=== PATIENT | female | born 1990 | race Caucasian/White ===

== ENCOUNTER 2017-11-01 22:25 | Inpatient (IN) | payer OTHER, MEDICAID ==
[~2017-11-01] VITALS: Ht 167.6 cm; Wt 81.6 kg
[2017-11-01 22:35] VITALS: BP 150/90
--- NOTE | 2017-11-01 22:41 | NUR ---
TO LOBBY AMB, VS, STABLE , A/W FOR BED, ERMD NOTED.
--- NOTE | 2017-11-02 03:50 | NUR ---
23/05 CAME IN W C/O ABSCESS TO SACRAL AREA. ABSCESS NOTED ON SACRAL AREA, ERYTHEMA, EDEMA NOTED, NO DRAINAGE AT THIS TIME. DENIES FEVER/CHILL, N/V. PT REPORTS HISTORY OF ABSCESS. PT WAS SEEN IN URGENT CARE YESTERDAY FOR SAME CC, RX: CLINDAMYCIN. DENIES OTHER PMH, TAKES TRAMADOL FOR PAIN, DENIES RELIEF
[2017-11-02] MEDS ORDERED: metroNIDAZOLE 500 MG/NS PREMIX 100 ML IV ONE (04:35)
[2017-11-02] MEDS ORDERED: KETOROLAC 30 MG/ML VIAL IVP ONE (04:35)
[2017-11-02] MEDS ORDERED: NACL 0.9% 1,000 ML IV SCH (05:04)
[2017-11-02] MEDS ORDERED: ACETAMINOPHEN 325 MG TAB PO PRN (05:05)
[2017-11-02] MEDS ORDERED: ONDANSETRON 4 MG/2 ML VIAL IVP PRN ×2 (05:05→10:10)
[2017-11-02] MEDS ORDERED: KETOROLAC 15 MG/ML VIAL IVP PRN (05:10)
--- NOTE | 2017-11-02 05:45 | NUR ---
Patient will be admitted to care of [facility]. Admited to TELE. Will go to room 104A. Belongings list completed. BEDSIDE Report to DARLEEN DEL VALLE. IV INFUSING, DARLEEN DEL VALLE INFORMED TO CONTINUE UNTIL FINISH
[2017-11-02 05:49] LABS: APPEARANCE,URINE CLOUDY (CLEAR); BILIRUBIN,URINE NEGATIVE (NEGATIVE); BLOOD, URINE 2+ (NEGATIVE); COLOR,URINE YELLOW (YELLOW); LEUKOCYTE ESTERASE ,URINE 1+ (NEGATIVE); NITRITE, URINE NEGATIVE (NEGATIVE); UGLUCOSE NEGATIVE (NEGATIVE)
[2017-11-02 05:53] LABS: BASOPHILS # (AUTO) 0.1 K/uL (0.00-0.22); BASOPHILS % (AUTO) 0.8 % (0.0-2.0); EOSINOPHILS # (AUTO) 0.1 K/uL (0-0.4); EOSINOPHILS % (AUTO) 0.6 % (0.0-4.0); HEMATOCRIT 37.2 % (36-48); HEMOGLOBIN 12.6 g/dL (12.0-16.0); LYMPHOCYTES # (AUTO) 2.1 K/uL (2.5-16.5); LYMPHOCYTES % (AUTO) 13.6 % (20.5-51.1); MEAN CORPUSCULAR HEMOGLOBIN 29 pg (27-31); MEAN CORPUSCULAR HGB CONC 34 g/dL (33-37); MEAN CORPUSCULAR VOLUME 86 fL (80-94); MONOCYTES # (AUTO) 0.9 K/uL (0.8-1.0); NEUTROPHILS # (AUTO) 12.3 K/uL (1.8-7.7); PLATELET COUNT (AUTO) 346 K/uL (140-450); RED BLOOD CELL COUNT(AUTO) 4.35 MIL/uL (4.20-5.40); RED CELL DISTRIBUTION WIDTH 12.1 % (11.6-13.7); WHITE BLOOD COUNT (AUTO) 15.5 K/uL (4.8-10.8)
[2017-11-02 05:55] LABS: ANION GAP 13.1 (8-16); CARBON DIOXIDE 25.4 mmol/L (21-32); CREATININE 0.9 mg/dL (0.6-1.3); POTASSIUM 3.5 mmol/L (3.5-5.1)
[2017-11-02 06:06] LABS: TOTAL BILIRUBIN 0.5 mg/dL (0.0-1.0)
[2017-11-02 06:10] LABS: RBC,URINE 0-5 (RARE) /HPF (0-5); WBC,URINE 20-60 /HPF (0-5)
[2017-11-02 06:15] VITALS: BP 114/68
--- NOTE | 2017-11-02 06:15 | NUR ---
ADMITTED PATIENT TO THE TELE UNIT, PATIENT AWAKE ALERT ORIENTED X4, NO S/S OF DISTRESS NOTED, RESPIRATION EVEN AND UNLABORED, IV PATENT AND INTACT, TELE MONITOR IS PLACED ON PATIENT, PLAN OF CARE DISCUSSED, PATIENT VERBALIZED UNDERSTANDING, CALL LIGHT WITHIN REACH, SAFETY MEASURE ENSURED, WILL CONTINUE TO MONITOR.
[2017-11-02 06:17] LABS: BARBITURATE, URINE NEG. ng/ml (NEG <=200); BENZODIAZEPINE, URINE NEG. ng/mL (NEG <=200); CANNABINOID, URINE NEG. ng/mL (NEG <=50); COCAINE, URINE NEG. ng/mL (NEG <=300); OPIATE, URINE NEG. ng/mL (NEG <=2000); PHENCYCLIDINE SCREEN,URINE NEG. ng/mL (NEG <=25)
--- NOTE | 2017-11-02 06:21 | NUR ---
DR. YANG IS AWARE THE CLEOCIN IS NOT ADMINISTERED, AND THE DAY SHIFT NURSE WILL ADMINISTER THE CLEOCIN, HE STATED," IT IS OKAY."
[2017-11-02 06:24] LABS: PROTHROMBIN TIME 10.6 secs (10.8-13.4)
[2017-11-02] MEDS ORDERED: CLINDAMYCIN 600 MG in DEXTROSE 5% 50 ML IV SCH ×2 (06:30→13:00)
[2017-11-02] MEDS: LEVOFLOXACIN 750 MG/D5W PREMIX 150 ML IV SCH (06:31)
--- NOTE | 2017-11-02 06:35 | NUR ---
PATIENT HAS BEEN SCREENED AND CATEGORIZED LOW NUTRITION RISK. PATIENT WILL BE SEEN WITHIN 7 DAYS OF ADMISSION. 11/08/17 JAMAAL MYERS MS, RDN
[2017-11-02 06:43] LABS: FREE T4 (FREE THYROXINE) 1.43 ng/dL (0.76-1.46); MAGNESIUM 2.3 mg/dL (1.8-2.4); PHOSPHORUS 3.4 mg/dL (2.5-4.9); THYROID STIMULATING HORMONE 1.84 uIU/mL (0.34-3.74)
--- NOTE | 2017-11-02 07:21 | NUR ---
ENDORSED PLAN OF CARE TO DAY SHIFT RN, PATIENT IS IN STABLE CONDITION.
--- NOTE | 2017-11-02 07:24 | NUR ---
RECEIVED PT IN BED. AWAKE, ALERT ORIENTED X4. NO SOB NOTED. DENIES ANY PAIN OR DISCOMFORT AT THIS TIME. ASSISTED DR. YANG WITH PILONDIAL ABSCESS ASSESSMENT. SAFETY PRECAUTION IN PLACE. AMBULATORY. CALL LIGHT WITHIN REACH.
[2017-11-02 08:00] VITALS: BP 105/65
--- NOTE | 2017-11-02 08:26 | NUR ---
DR. RASHID CAME TO SEE PT
--- NOTE | 2017-11-02 08:30 | NUR ---
DR. RASHID EXPLAINED TO PT PROCEDURE FOR I&D PILONIDAL ABSCESS OF LOWER BACK. PT VERBALIZED UNDERSTANDING AND SIGNED INFORMED CONSENT. ALSO EXPLAINED TO PT THE NEED FOR CT SCAN OF ABDOMEN/PELVIS, AND CONSENT OBTAINED AND IN TO CHART.
[2017-11-02] MEDS: DOCUSATE SODIUM 100 MG GELCAP PO SCH ×2 (09:20→21:33)
[2017-11-02] MEDS: CLINDAMYCIN 600 MG in DEXTROSE 5% 50 ML IV SCH ×2 (09:21→17:26)
[2017-11-02] MEDS: LACTOBACILLUS RHAMNOSUS GG 1 EACH CAP PO SCH (09:21)
--- NOTE | 2017-11-02 09:37 | NUR ---
OPERATING ROOM STAFF SURJIT CAME TO [place] PASTE MAKER PT FOR SCHEDULED I&D, PER TRACY. PT AWAKE. NO SOB NOTED. DENIES ANY PAIN OR DISCOMFORT AT THIS TIME. PT REMOVED HER EARRING ANG HANDED IT TO HER MOTHER LISSET. PROVIDED WITH TICKET TO RIDE AND CONSENT. PT TRANSFERRED ON STABLE CONDITION.
[2017-11-02] MEDS ORDERED: HYDROmorphone PFS 2 MG/ML SYR IVP PRN ×2 (09:55→10:10)
[2017-11-02] MEDS ORDERED: LACTATED RINGERS 1,000 ML IV SCH (10:07)
[2017-11-02] MEDS ORDERED: DEXAMETHASONE 4 MG/ML VIAL ONE (10:10)
[2017-11-02] MEDS ORDERED: diphenhydrAMINE 50 MG/ML VIAL IVP PRN (10:10)
[2017-11-02] MEDS ORDERED: MEPERIDINE 25 MG/ML SYR IVP PRN (10:10)
[2017-11-02] MEDS ORDERED: SEVOFLURANE 250 ML BTL INH ONE (10:10)
[2017-11-02] MEDS ORDERED: PROPOFOL 200 MG/20 ML VIAL IV ONE ×2 (10:10)
[2017-11-02] MEDS ORDERED: ONDANSETRON 4 MG/2 ML VIAL ONE (10:10)
[2017-11-02] MEDS ORDERED: MEPERIDINE 50 MG/ML SYR ONE (10:26)
[2017-11-02] MEDS ORDERED: fentaNYL 0.05 MG/ML VIAL ONE (10:26)
[2017-11-02] MEDS ORDERED: MIDAZOLAM 2 MG/2 ML VIAL ONE (10:26)
[2017-11-02] MEDS ORDERED: HYDROGEN PEROXIDE 3% 240 ML BTL TP ONE (10:27)
[2017-11-02 12:00] VITALS: BP 115/67
--- NOTE | 2017-11-02 12:00 | NUR ---
PT CAME BACK FROM OR. AWAKE. ALERT ORIENTED X4. NO SOB NOTED. DENIES ANY PAIN OR DISCOMFORT AT THIS TIME. DRESSING ON LOWER BACK NOTED. NO ACTIVE BLEEDING NOTED ON SITE. OFFERED PT CLEAR LIQUID DIET.
[2017-11-02] MEDS: DEXT 5% / NACL 0.45% 1,000 ML IV SCH ×2 (12:37→19:55)
--- NOTE | 2017-11-02 13:33 | NUR ---
PT TOLERATED HER CLEAR LIQUID DIET. NO SOB NOTED. DENIES ANY PAIN OR DISCOMFORT AT THIS TIME.
[2017-11-02] MEDS: HYDROcodone/APAP 5/325 MG 1 TAB TAB PO PRN (13:45)
[2017-11-02 16:00] VITALS: BP 93/51
--- NOTE | 2017-11-02 18:10 | NUR ---
PT TOLERATED HER REGULAR DIET WELL. NO SOB NOTED. DENIES ANY PAIN OR DISCOMFORT AT THIS TIME.
--- NOTE | 2017-11-02 18:14 | NUR ---
PT KEPT CLEAN DRY, AND COMFORTABLE, NEEDS ATTENDED. NO SOB NOTED. DENIES ANY PAIN OR DISCOMFORT AT THIS TIME. DRESSING ON LOWER BACK WOUND S/P I&D DRY AND INTACT. NO ACTIVE BLEEDING NOTED. FAMILY AT BEDSIDE. VITALS STABLE. WILL ENDORSE TO NEXT SHIFT. PT ON STABLE CONDITION. FOR CONTINUITY OF CARE.
--- NOTE | 2017-11-02 19:10 | NUR ---
RECEIVED REPORT FROM AM NURSE. PT IS AWAKE, RESTING COMFORTABLY IN BED. NO SIGNS OF ACUTE DISTRESS NOTED, RESPIRATIONS EVEN AND UNLABORED. IV ACCES INTACT, PATENT AND ASYMPTOMATIC. PLAN OF CARE DISCUSSED, PT VERBALIZED UNDERSTANDING. BED IN LOW POSITION, BILATERAL HALF SIDE RAIL UP, CALL LIGHT WITHIN REACH, WILL CONTINUE TO MONITOR
[2017-11-02 20:00] VITALS: BP 109/67
--- NOTE | 2017-11-02 23:38 | NUR ---
RECEIVED REPORT FROM AM NURSE. PT IS AWAKE, RESTING COMFORTABLY IN BED. NO SIGNS OF ACUTE DISTRESS NOTED, RESPIRATIONS EVEN AND UNLABORED. IV ACCES INTACT, PATENT AND ASYMPTOMATIC. PLAN OF CARE DISCUSSED, PT VERBALIZED UNDERSTANDING. BED IN LOW POSITION, BILATERAL HALF SIDE RAIL UP, CALL LIGHT WITHIN REACH, WILL CONTINUE TO MONITOR. Addendum: 11/02/17 at 0253 by Susanne Gibson RN DISREGARD ABOVE NOTATION.
[2017-11-03] VITALS: BP 110/65
[2017-11-03] MEDS: CLINDAMYCIN 600 MG in DEXTROSE 5% 50 ML IV SCH ×3 (00:27→16:23)
[2017-11-03] MEDS: LEVOFLOXACIN 750 MG/D5W PREMIX 150 ML IV SCH (06:01)
[2017-11-03] MEDS: DEXT 5% / NACL 0.45% 1,000 ML IV SCH ×2 (06:04→16:33)
--- NOTE | 2017-11-03 07:10 | NUR ---
RECEIVED PATIENT REPORT AT BEDSIDE. PATIENT AWAKE, ALERT AND ORIENTED. NO S/S OF DISTRESS NOTED. PATIENT ON ROOM AIR. NO SOB. NO C/O PAIN AT THIS TIME. WOUND DRESSING NOTED TO THE SACRAL AREA. DRESSING CLEAN, DRY AND INTACT. BED LOWERED WITH CALL LIGHT WITHIN REACH. WILL CONTINUE TO MONITOR
[2017-11-03 07:28] LABS: BASOPHILS # (AUTO) 0.1 K/uL (0.00-0.22); BASOPHILS % (AUTO) 0.7 % (0.0-2.0); EOSINOPHILS # (AUTO) 0.1 K/uL (0-0.4); EOSINOPHILS % (AUTO) 0.6 % (0.0-4.0); LYMPHOCYTES # (AUTO) 2.6 K/uL (2.5-16.5); LYMPHOCYTES % (AUTO) 23.7 % (20.5-51.1); MEAN CORPUSCULAR HEMOGLOBIN 30 pg (27-31); MEAN CORPUSCULAR HGB CONC 35 g/dL (33-37); MEAN CORPUSCULAR VOLUME 86 fL (80-94); MONOCYTES # (AUTO) 0.7 K/uL (0.8-1.0); MONOCYTES % (AUTO) 6.2 % (1.7-9.3); NEUTROPHILS # (AUTO) 7.7 K/uL (1.8-7.7); NEUTROPHILS % (AUTO) 68.8 % (42.2-75.2); PLATELET COUNT (AUTO) 314 K/uL (140-450); RED BLOOD CELL COUNT(AUTO) 3.72 MIL/uL (4.20-5.40); RED CELL DISTRIBUTION WIDTH 12.2 % (11.6-13.7); WHITE BLOOD COUNT (AUTO) 11.2 K/uL (4.8-10.8)
--- NOTE | 2017-11-03 07:29 | NUR ---
ENDORSED PT TO AM NURSE FOR CONTINUITY OF CARE. PT IN STABLE CONDITION.
[2017-11-03 08:00] VITALS: BP 110/69
[2017-11-03] MEDS: LACTOBACILLUS RHAMNOSUS GG 1 EACH CAP PO SCH (08:19)
[2017-11-03] MEDS: HYDROcodone/APAP 5/325 MG 1 TAB TAB PO PRN ×2 (08:19→16:32)
[2017-11-03] MEDS: DOCUSATE SODIUM 100 MG GELCAP PO SCH ×2 (08:19→21:03)
[2017-11-03 08:20] LABS: ANION GAP 10.6 (8-16); CARBON DIOXIDE 26.4 mmol/L (21-32); CREATININE 0.7 mg/dL (0.6-1.3)
[2017-11-03 08:27] LABS: CHOL/HDL RATIO 2.8 (1-4.5); MAGNESIUM 2.4 mg/dL (1.8-2.4); PHOSPHORUS 3.1 mg/dL (2.5-4.9)
[2017-11-03 16:00] VITALS: BP 107/60
--- NOTE | 2017-11-03 16:20 | NUR ---
PATIENT SEEN BY DR ARSHID. WOUND DRESSING CHANGED. WOUND IRRIGATED WITH NS THEN PACKED WITH WET KERLIX THEN COVERED WITH ABD PAD. PATIENT TOLERATED WELL
--- NOTE | 2017-11-03 19:27 | NUR ---
RECEIVED HANDOFF REPORT FROM AM IVON ROJAS. PATIENT A&OX4. PATIENT DENIES PAIN. PATIENT IV PATENT AND INTACT. NO SIGNS OR SYMPTOMS OF ACUTE DISTRESS NOTED. CALL LIGHT WITHIN REACH. WILL CONTINUE TO MONITOR.
--- NOTE | 2017-11-03 21:05 | NUR ---
PM MEDS GIVEN WITH EDUCATION. REINFORCED DRESSING ON BACK DUE TO PEELING OFF TAPE. DRESSING DRY, NO DRAINAGE, PACKING FREE OF SOILING. PATIENT VERBALIZED UNDERSTANDING.NO SIGNS OR SYMPTOMS OF ACUTE DISTRESS NOTED. CALL LIGHT WITHIN REACH. WILL CONTINUE TO MONITOR.
[2017-11-04] VITALS: BP 91/45
[2017-11-04] MEDS: CLINDAMYCIN 600 MG in DEXTROSE 5% 50 ML IV SCH ×2 (01:30→09:19)
[2017-11-04] MEDS: DEXT 5% / NACL 0.45% 1,000 ML IV SCH (02:11)
--- NOTE | 2017-11-04 02:23 | NUR ---
PATIENT RESTING IN BED. PATIENT DENIES PAIN. NO SIGNS OR SYMPTOMS OF ACUTE DISTRESS NOTED. CALL LIGHT WITHIN REACH. WILL CONTINUE TO MONITOR.
[2017-11-04] MEDS: LEVOFLOXACIN 750 MG/D5W PREMIX 150 ML IV SCH (05:15)
[2017-11-04 07:31] LABS: BASOPHILS # (AUTO) 0.2 K/uL (0.00-0.22); BASOPHILS % (AUTO) 2.1 % (0.0-2.0); EOSINOPHILS # (AUTO) 0.1 K/uL (0-0.4); EOSINOPHILS % (AUTO) 1.7 % (0.0-4.0); HEMATOCRIT 32.5 % (36-48); LYMPHOCYTES # (AUTO) 3.3 K/uL (2.5-16.5); LYMPHOCYTES % (AUTO) 40.8 % (20.5-51.1); MEAN CORPUSCULAR HEMOGLOBIN 29 pg (27-31); MEAN CORPUSCULAR HGB CONC 34 g/dL (33-37); MEAN CORPUSCULAR VOLUME 86 fL (80-94); MONOCYTES # (AUTO) 0.6 K/uL (0.8-1.0); NEUTROPHILS # (AUTO) 3.9 K/uL (1.8-7.7); NEUTROPHILS % (AUTO) 48.4 % (42.2-75.2); PLATELET COUNT (AUTO) 313 K/uL (140-450); RED BLOOD CELL COUNT(AUTO) 3.77 MIL/uL (4.20-5.40); RED CELL DISTRIBUTION WIDTH 12.2 % (11.6-13.7); WHITE BLOOD COUNT (AUTO) 8.1 K/uL (4.8-10.8)
--- NOTE | 2017-11-04 07:33 | NUR ---
ENDORSED PLAN OF CARE TO AM RN. PATIENT IN STABLE CONDITION.
[2017-11-04 08:00] VITALS: BP 100/69
--- NOTE | 2017-11-04 08:00 | NUR ---
RECEIVED REPORT FROM STARLA RN FOR CONTINUITY OF CARE. PATIENT AWAKE A/OX4 NO S/S OF RESP DISTRESS NOTED NO COMPLAIN OF PAIN . ABLE TO MAKE NEEDS KNOWN . IV SITE LT AC GAUGE 20 INTACT AND PATENT. IVF INFUSING WELL . DRESSING WILL BE CHANGED ORDERED. PLAN OF CARE DISCUSSED WITH THE PATIENT ,VITALS STABLE WILL CONTINUE TO MONITOR.
--- NOTE | 2017-11-04 09:13 | NUR ---
WOUND EVALUATION NOTE: REASON FOR WOUND EVALUATION: S/P ABSCESS SACRALCOCCYX AREA COMPLETE SKIN ASSESSMENT DONE ON THIS 27 Y/O FEMALE PATIENT FROM HOME TO [facility], WITH INITIAL DIAGNOSIS OF BUTTOCKS ABSCESS. PAST MEDICAL HISTORY INCLUDE PILONIDAL ABSCESS. ALL ABOVE INFORMATION WAS OBTAINED FROM THE ADMISSION H&P AND PT. PT. IS AAX4. LABS ARE WBC 8.1, H/H 11.0/2.5, GLUCOSE 127, ALBUMIN 3.0. CURRENT MEDS INCLUDE HYDROCODONE, CLINDAMYCIN,AND LEVOFLOXACIN. SKIN WARM TO TOUCH WNL, TOENAILS ARE SHORT AND CLEAN, NO EDEMA, BLE WITH HAIR GROWTH AND NORMAL PLAN OF CARE DISCUSSED WITH PRIMARY RN. PT. ABLE TO VERBALIZE UNDERSTANDING. INTEGUMENTARY: SACROCOCCYX - SACRALCOCCYX S/P I&D SURGICAL SITE 4.SX5.5X4 CM, WOUND BED CLEAN WITH BLANCHABLE REDNESS, MODERATE AMOUNT OF SANGUINOUS DRAINAGE, NO ODOR, GUDELIA-WOUND FLAT EDGE, DRY AND CLEAN, PAIN LEVEL 5/10 RECOMMENDATIONS: -HOME HEALTH TO FOLLOW UP FOR WOUND CARE QD -MEDICATED FOR PAIN 30 MINUTES PRIOR TO DRESSING CHANGE -CLEANSE SACRALCOCCYX S/P I&D SURGICAL SITE WITH WOUND CLEANSING SOLUTION. PAT DRY, PACK WOUND WITH IODOFORM GAUZES, COVER WITH DRY DRESSING AND ABDOMEN PAD SECURE WITH TAPE QD AND PRN IF SOILING -TURN AND REPOSITION PATIENT Q2H -KEEP SKIN CLEAN AND DRY AT ALL TIMES. -CONTINUE TO FOLLOW UP WITH SURGEON AFTER DISCHARGE RECOMMENDATIONS DISCUSSED WITH PRIMARY RN AND DR. DUTTA PLEASE CONTACT WOUND CARE NURSE FOR ANY QUESTIONS AND CHANGES IN WOUND CONDITION.
[2017-11-04] MEDS: LACTOBACILLUS RHAMNOSUS GG 1 EACH CAP PO SCH (09:18)
[2017-11-04] MEDS: DOCUSATE SODIUM 100 MG GELCAP PO SCH (09:19)
[2017-11-04] MEDS: HYDROcodone/APAP 5/325 MG 1 TAB TAB PO PRN (09:19)
--- NOTE | 2017-11-04 11:42 | NUR ---
CALLED [facility] AND SPOKE WITH JOB,[phone]. SHE SAID TO FAX REVIEW JUST TO HER. FAXED INITIAL REVIEW TO [facility] [phone]. JOB SAID FOR HOME HEALTH, TRY [facility], OR [facility] [phone].
--- NOTE | 2017-11-04 15:59 | NUR ---
CALLED [facility], THEY ARE UNABLE TO SERVICE THIS PATIENT. CALLED [facility]. DUE TO THE INSURANCE THEY CANNOT SERVICE THIS PATIENT. I CALLED JOB AT [facility] AND INFORMED HER SHE SAID TO TRY [facility], AND [facility]. THE [facility] CANNOT SERVICE THIS PATIENT AND [facility], UNABLE TO REACH. I INFORMED JOB AND SHE SAID SHE WOULD CALL ME BACK.
[2017-11-04 16:00] VITALS: BP 115/69
--- NOTE | 2017-11-04 17:45 | NUR ---
RECEIVED HANDOFF REPORT FROM AM CHARGE NURSE. PATIENT A&OX4. PATIENT DENIES PAIN. DRESSING DRY AND INTACT. IV SITE PATENT AND INTACT. NO SIGNS OR SYMPTOMS OF ACUTE DISTRESS NOTED. FAMILY AT BEDSIDE. CALL LIGHT WITHIN REACH. WILL CONTINUE TO MONITOR.
[2017-11-04] MEDS ORDERED: ACET-9525 PO (17:54)
[2017-11-04] MEDS ORDERED: CEPH500T PO (17:54)
[2017-11-04] MEDS ORDERED: LEVO500T2 PO (17:57)
--- NOTE | 2017-11-04 18:00 | NUR ---
IV TAKEN OUT. TIP IN TACT. PATIENT TOLERATED WELL.
[2017-11-04 18:04] VITALS: BP 115/69
--- NOTE | 2017-11-04 18:08 | NUR ---
PATIENT DISCHARGED HOME. PATIENT AMBULATORY. PATIENT IN STABLE CONDITION.
--- NOTE | 2017-11-05 11:08 | NUR ---
CALLED [facility] ABOUT HOME HEALTH FOR WOUND CARE. RECEIVED A CALL BACK FROM JARROD [phone] X [phone]. SHE SAID TO CALL [facility] AT [phone]. I CALLED THAT NUMBER AND SPOKE WAS TRANSFERED TO SEVERAL PEOPLE AND THEN WAS TOLD BY JOSE FROM THEY ARE [employer] AND DO NOT COVER [facility]. I CALLED A HOME HEALTH ON [facility], [place], AND NIKKO SAID THEY DO NOT TAKE [facility] DIRECT. CALLED [facility] AND LEFT MESSAGE FOR BOTH JARROD AND CARRIE. WAITING CALL BACK.
--- NOTE | 2017-11-05 11:42 | NUR ---
SPOKE WITH JARROD FROM [place]. SHE SAID THAT THIS PATIENT IS UNDER [facility], BUT BECAUSE OF HER PCP, SHE IS UNDER [facility]. I CALLED [facility] AT [phone]. WAITING FOR A CUT PRESSMAN.
== END 2017-11-04 18:08 | disposition home or self-care (01) | DRG 720 ==
LOC: MED 22:25 → MTU 11-02 04:56
PROVIDERS: ADMIT Student in an Organized Health Care Education/Training Program; ATTEND Student in an Organized Health Care Education/Training Program
PROC: 0H96XZZ Drainage of Back Skin, External Approach (ICD-10-PCS; principal; 2017-11-02 10:00)
DX: A41.9 Sepsis, unspecified organism (principal); N17.0 Acute kidney failure with tubular necrosis; N39.0 Urinary tract infection, site not specified; L05.01 Pilonidal cyst with abscess; B96.20 Unspecified Escherichia coli [E. coli] as the cause of diseases classified elsewhere; E44.0 Moderate protein-calorie malnutrition; E87.1 Hypo-osmolality and hyponatremia; E66.3 Overweight; Z68.29 Body mass index [BMI] 29.0-29.9, adult; Z88.0 Allergy status to penicillin; Z88.2 Allergy status to sulfonamides
CPT/HCPCS: 36415; 80048; 80053; 80305; 81001; 83036; 83605; 83735; 84100; 84439; 84443; 84484; 84702; 85025; 85610; 85730; 87040; 87070; 87075; 87081; 87086; 87186; 87205; 96365; 96375; 99285; J1100; J1170; J1885; J1956; J2175; J2250; J2405; J2704; J3010; J3490; J7030; J7060; Q0092

== ENCOUNTER 2017-12-25 18:06 | Emergency (ER) | payer MEDICAID, OTHER ==
[~2017-12-25] VITALS: Ht 165.1 cm; Wt 94.0 kg
[~2017-12-25 18:06] MED LIST: ACET-9525 PO; LEVO500T2 PO
[2017-12-25 18:14] VITALS: BP 143/91
--- NOTE | 2017-12-25 18:21 | NUR ---
DR ANGEL NOTIFIED, PT AMBULATES BACK TO THE LOBBY PER
--- NOTE | 2017-12-25 18:31 | NUR ---
BLOOD DRAWN BY MARKETING UNDERWRITER, PT GIVEN WATER TO ENCOURAGE URINE SPECIMEN UNABLE TO PROVIDE AT THIS TIME, [facility]
[2017-12-25 18:37] LABS: BASOPHILS # (AUTO) 0.3 K/uL (0.00-0.22); BASOPHILS % (AUTO) 4.5 % (0.0-2.0); EOSINOPHILS # (AUTO) 0.1 K/uL (0-0.4); HEMATOCRIT 36.4 % (36-48); HEMOGLOBIN 12.5 g/dL (12.0-16.0); LYMPHOCYTES % (AUTO) 17.2 % (20.5-51.1); MEAN CORPUSCULAR HEMOGLOBIN 29 pg (27-31); MEAN CORPUSCULAR HGB CONC 34 g/dL (33-37); MEAN CORPUSCULAR VOLUME 85 fL (80-94); MONOCYTES # (AUTO) 0.5 K/uL (0.8-1.0); MONOCYTES % (AUTO) 8.8 % (1.7-9.3); NEUTROPHILS # (AUTO) 3.9 K/uL (1.8-7.7); NEUTROPHILS % (AUTO) 68.5 % (42.2-75.2); PLATELET COUNT (AUTO) 270 K/uL (140-450); RED BLOOD CELL COUNT(AUTO) 4.28 MIL/uL (4.20-5.40); RED CELL DISTRIBUTION WIDTH 12.8 % (11.6-13.7); WHITE BLOOD COUNT (AUTO) 5.8 K/uL (4.8-10.8)
--- NOTE | 2017-12-25 18:44 | NUR ---
PT AMBULATED TO BED 12
[2017-12-25 18:48] LABS: ANION GAP 12.6 (8-16); CARBON DIOXIDE 26.3 mmol/L (21-32); CREATININE 0.9 mg/dL (0.6-1.3); POTASSIUM 3.9 mmol/L (3.5-5.1)
--- NOTE | 2017-12-25 18:49 | NUR ---
27f bib self with c/o 5/10 intermittent sharp rlq x today s/p eating "2 chicken nuggets". Pt also reports of loose stool and nausea. Pt referred from urgent care for possible appendicitis. Pt is aox4 with steady gait. Skin is warm/pink/dry. No acute distress at this time. Awaiting for er md mckinnon. All needs met at this time. Will continue to monitor.
[2017-12-25 18:54] LABS: ALBUMIN 3.3 g/dL (3.4-5.0); TOTAL BILIRUBIN 0.2 mg/dL (0.0-1.0)
--- NOTE | 2017-12-25 19:01 | NUR ---
pt to ct via w/c accompanied by associate professor of radiology
--- NOTE | 2017-12-25 19:15 | NUR ---
Pt report given to Gregg DEL VALLE. Transfer of care at this time.
--- NOTE | 2017-12-25 19:16 | NUR ---
PATIENT RESTING AT THIS TIME.
[2017-12-25 19:24] LABS: APPEARANCE,URINE CLEAR (CLEAR); BILIRUBIN,URINE NEGATIVE (NEGATIVE); BLOOD, URINE TRACE-I (NEGATIVE); COLOR,URINE YELLOW (YELLOW); LEUKOCYTE ESTERASE ,URINE NEGATIVE (NEGATIVE); NITRITE, URINE NEGATIVE (NEGATIVE); UGLUCOSE NEGATIVE (NEGATIVE)
[2017-12-25 19:26] LABS: RBC,URINE 3-10 (FEW) /HPF (0-5); WBC,URINE 0-5 (RARE) /HPF (0-5)
[2017-12-25 20:53] VITALS: BP 129/67
--- NOTE | 2017-12-25 20:53 | NUR ---
Patient discharged with v/s stable. Written and verbal after care instructions given and explained. Patient alert, oriented and verbalized understanding of instructions. Ambulatory with steady gait. All questions addressed prior to discharge. ID band removed. Patient advised to follow up with PMD. Rx of ZPACK AND MIRALAX given. Patient educated on indication of medication including possible reaction and side effects. Opportunity to ask questions provided and answered.
== END 2017-12-25 20:53 | disposition home or self-care (01) ==
LOC: MED 18:06
DX: K59.00 Constipation, unspecified (principal); J06.9 Acute upper respiratory infection, unspecified; R03.0 Elevated blood-pressure reading, without diagnosis of hypertension; Z79.899 Other long term (current) drug therapy; Z88.2 Allergy status to sulfonamides; Z88.0 Allergy status to penicillin
CPT/HCPCS: 36415; 74176; 76705; 80053; 81001; 81025; 83690; 85025; 99285; Q0092